=== PATIENT | female | born 1970 | race Caucasian/White ===

== ENCOUNTER 2018-02-13 01:00 | Emergency (ER) | payer BC ==
[~2018-02-13] VITALS: Ht 160 cm; Wt 101.2 kg
[2018-02-13 01:40] VITALS: BP 161/67
== END 2018-02-13 01:40 | disposition home or self-care (01) ==
LOC: ED 01:00
DX: H66.92 Otitis media, unspecified, left ear (principal); J06.9 Acute upper respiratory infection, unspecified
CPT/HCPCS: J7512

== ENCOUNTER 2019-07-03 21:58 | Emergency (ER) | payer BC ==
[~2019-07-03] VITALS: Ht 157.5 cm; Wt 100.7 kg
[2019-07-03 22:13] VITALS: Ht 157.5 cm; Wt 100.7 kg
[2019-07-04 02:42] VITALS: BP 132/84
== END 2019-07-04 02:42 | disposition home or self-care (01) ==
LOC: ED 21:58
DX: J20.9 Acute bronchitis, unspecified (principal)
CPT/HCPCS: J8540